=== PATIENT | female | born 1985 | race Caucasian/White ===

== ENCOUNTER → 2021-01-16 12:49 | Outpatient (CLI) | payer OTHER, MEDICAID, SELFPAY ==
--- NOTE | 2021-01-16 | DI.MRI.S_ITS ---
PROCEDURE: MR SHOULDER RT WO CON INDICATIONS: Unspecified disorder of synovium and tendon, right TECHNIQUE: Noncontrast oblique coronal T2 fast spin echo with fat saturation, oblique sagittal T1 spin echo and T2 fast spin echo with fat saturation, axial T1 spin echo and T2 fast spin echo with fat saturation through the shoulder. COMPARISON: [facility], CR, XR SHOULDER 2+ VIEWS RIGHT, 10/24/2020, 14:44. FINDINGS: Image quality: Excellent. Rotator cuff: The supraspinatus, infraspinatus, and subscapularis tendons appear intact throughout. Sagittal images demonstrate no muscle atrophy. Bones and bursae: No bone marrow contusions or fractures. No acromioclavicular joint degeneration. The acromion demonstrates conventional anatomy, without an os acromiale. Small amount of fluid noted in the subacromial/subdeltoid bursa compatible with mild bursitis. Capsule and soft tissues: Labrum is intact. The long head of the biceps tendon demonstrates normal location and morphology. The rotator interval appears normal, without fibrosis. The coracohumeral ligament is normal in thickness. IMPRESSION: 1. Mild subacromial/subdeltoid bursitis. 2. No evidence of internal derangement. Dictated by: Cally Watts MD, PhD on 01/16/2021 at 17:54 Approved by: Cally Watts MD, PhD on 01/17/2021 at 10:09
== END ==
PROVIDERS: PCP Family Medicine Adult Medicine; Referring Provider Physical Medicine & Rehabilitation; Visit Provider Physical Medicine & Rehabilitation
DX: M67.911 Unspecified disorder of synovium and tendon, right shoulder (principal); M75.51 Bursitis of right shoulder
CPT/HCPCS: 73221

== ENCOUNTER 2021-07-11 13:06 | Emergency (ER) | payer OTHER, MEDICAID, SELFPAY ==
[2021-07-11 13:32] VITALS: BP 130/76; PULSE 102; RESP 22; TEMP 36.6; O2SAT 99; BMI 19.0
[2021-07-11 14:05] VITALS: BP 130/74; PULSE 120; O2SAT 100
[2021-07-11 14:20] VITALS: BP 115/70; PULSE 106; O2SAT 96
--- NOTE | 2021-07-11 14:22 | ED_ITS ---
HPI - Back Pain/Injury <CHERIE Ng - Last Filed: 07/11/21 20:49> General Chief Complaint: Back Pain/Injury Stated Complaint: slipped disc, upper back pain, by shoulder Time Seen by Provider: 07/11/21 14:01 Source: patient History of Present Illness HPI Narrative: 35-year-old female presents to the emergency department for chronic left shoulder pain for 1 year but worsening over the last 3 months. Patient was seen by her orthopedic surgeon yesterday, she has completed EMG studies, had an MRI in December of 2020 which at the time showed mild subacromial/subdeltoid bursitis with no evidence of internal derangement. There was a small amount of fluid noted in subacromial subdeltoid bursa compatible with mild bursitis. Patient states she has been having steroid injections every 4 weeks, last injection was 4 weeks ago, she also has been having trigger point injections and monthly chiropractic appointments which has been helpful. She states that she is in a flare right now for an unknown reason, she denies any known trauma recently or any repetitive motions. She states that she has been using lidocaine patches daily, currently has 1 on, took Tylenol this morning, Flexeril this morning, started a steroid pack this morning, she takes pantoprazole daily to help her stuck to her stomach. Her primary care provide Dr. Noble. Patient denies being on any opiate medications at this time, she has not on any pain contract and has been taking ibuprofen and Tylenol at home. Related Data Previous Rx's Medication Instructions Recorded diclofenac sodium 1 % topical gel 4 g TOPICAL QID PRN #100 g 07/11/21 (Voltaren Arthritis Pain) hydrocodone 5 mg-acetaminophen 325 1 tab PO BID PRN #14 tab 07/11/21 mg tablet methocarbamol 500 mg tablet 500 mg PO Q8H PRN #20 tab 07/11/21 Allergies Allergy/AdvReac Type Severity Reaction Status Date / Time No Known Drug Allergies Allergy Verified 07/11/21 13:41 Review of Systems <CHERIE Ng - Last Filed: 07/11/21 20:49> Review of Systems Narrative: General: denies fever, chills, malaise, sweats, fatigue Head/Neck: denies headache, neck pain, dizziness Eyes: denies visual changes, eye pain Cardio: denies chest pain, palpitations, edema Respiratory: denies dyspnea, cough, orthopnea GI: denies abdominal pain, nausea, vomiting, or diarrhea : denies dysuria, hematuria, urinary retention, frequency or incontinence MSK: Denies any muscle weakness, endorses left shoulder pain with radiculopathy to were not elbow, no changes to range of motion although it is a sharp pain. Skin: denies rash, itching, skin lesions or other Neuro: denies numbness, tingling Patient History <CHERIE Ng - Last Filed: 07/11/21 20:49> Social History Smoking Status: Never smoker Smoking Status: Never smoker alcohol intake frequency: holidays/special occasions only Substance Use Type: does not use Exam <CHERIE Ng - Last Filed: 07/11/21 20:49> Narrative Exam Narrative: Independently reviewed vitals signs and nursing notes. General: cooperative, comfortable, in no acute distress, well developed and well groomed Head: atraumatic, symmetrical facial expressions Neck: supple, atraumatic, without lymphadenopathy. Eyes: pupils equal round and reactive, EOMI, conjunctiva normal Nose: nares patent, no rhinorrhea Mouth/Throat: uvula midline, moist mucus membranes Cardiovascular: regular rate and rhythm, no peripheral edema, warm extremities Respiratory: normal effort, able to speak in complete sentences, no audible wheezing, stridor, or rales. No retractions or tachypnea. MSK: moves all extremities, ambulatory w/steady gait, neurovascularly intact, no weakness, left shoulder pain with abduction and flexion. Patient is not currently any sling, has a lidocaine patch on, no erythema, obvious swelling Skin: brisk capillary refill, no rash, no erythema Neuro: normal speech and cognition, A&O x3, normal tone Psych: mental status is grossly normal, congruent mood, normal affect, pleasant and cooperative Initial Vital Signs Initial Vital Signs: Vital Signs Temperature 97.9 F 07/11/21 13:32 Pulse Rate 102 H 07/11/21 13:32 Respiratory Rate 22 07/11/21 13:32 Blood Pressure 130/76 07/11/21 13:32 Pulse Oximetry 99 07/11/21 13:32 Course <CHERIE Ng - Last Filed: 07/11/21 20:49> Orders Ordered: Discontinued Medications Ketorolac Tromethamine (Ketorolac 30 Mg/Ml Vial) 15 mg IM NOW ONE Stop: 07/11/21 14:15 Last Admin: 07/11/21 14:32 Dose: 15 mg Documented by: MARIA GUADALUPE Vital Signs Vital signs: Vital Signs - 8 hr 07/11/21 13:32 07/11/21 14:05 07/11/21 14:20 Temperature 97.9 F Pulse Rate 102 H 120 H 106 H Respiratory Rate 22 Blood Pressure 130/76 130/74 115/70 Pulse Oximetry 99 100 96 MDM - Back Pain/Injury <CHERIE Ng - Last Filed: 07/11/21 20:49> Imaging Data Extremity x-ray #1: Radiologist's Impression: PROCEDURE:? MR SHOULDER RT WO CON ? INDICATIONS:? Unspecified disorder of synovium and tendon, right ? TECHNIQUE:? Noncontrast oblique coronal T2 fast spin echo with fat saturation, oblique sagittal T1 spin echo and T2 fast spin echo with fat saturation, axial T1 spin echo and T2 fast spin echo with fat saturation through the shoulder.? ? COMPARISON:? [facility], CR, XR SHOULDER 2+ VIEWS RIGHT, 10/24/2020, 14:44. ? FINDINGS:? Image quality:? Excellent.? ? Rotator cuff:? The supraspinatus, infraspinatus, and subscapularis tendons appear intact throughout.? Sagittal images demonstrate no muscle atrophy.? ? Bones and bursae:? No bone marrow contusions or fractures.? No acromioclavicular joint degeneration.? The acromion demonstrates conventional anatomy, without an os acromiale.? Small amount of fluid noted in the subacromial/subdeltoid bursa compatible with mild bursitis. ? Capsule and soft tissues:? Labrum is intact.? The long head of the biceps tendon demonstrates normal location and morphology.? The rotator interval appears normal, without fibrosis.? The coracohumeral ligament is normal in thickness.? ? ? IMPRESSION:? ? 1. Mild subacromial/subdeltoid bursitis.? ? 2. No evidence of internal derangement.? Dictated by: Cally Watts MD, PhD on 01/16/2021 at 17:54 ? ? Approved by: Cally Watts MD, PhD on 01/17/2021 at 10:09 ? [facility] Narrative Medical decision making narrative: 35 year old female presents to the emergency department complaining of worsening left shoulder pain which has been chronic in nature since last year patient had a MRI in December 2020 which showed mild subacromial subdeltoid bursitis without evidence of internal derangement. She reportedly saw her orthopedic surgeon yesterday who presume that this is ongoing bursitis/tendinitis pain. She came into the emergency department with lidocaine patches, took Flexeril, started a steroid pack this morning, also took Tylenol bar before she arrived. Patient was given a prescription for muscle relaxers, hydrocodone, and diclofenac topical gel until she can follow up with her orthopedic surgeon about her plan. Her orthopedic surgeon yesterday told her he ordered an MRI for her and they will call her, she has not received this phone call yet. Did not complete any imaging today as patient has already had an MRI of this, she has another MRI pending, there is no recent trauma or acute injury. This is a chronic problem, she understands to follow-up with her primary care provider and orthopedics resolution improvement of her problem. She understands return to the emergency department for any new or worsening problems. Patient was offered a sling, she denied this. Patient is appropriate and amenable to discharge home. Vital signs are stable on repeat examination is unremarkable. Patient has been informed of results. Patient has been given strict return to ER precautions for any new or worsening symptoms. Patient understands to follow up closely with outpatient providers as instructed. Patient understands plan and agrees to discharge home. All questions and concerns answered at this time. Discharge Plan Departure Patient Disposition: Home Clinical Impression: Chronic shoulder pain Qualifiers: Laterality: left Qualified Code(s): M25.512 - Pain in left shoulder Instructions: Shoulder Tendinopathy, DI for Shoulder Pain Activity Restrictions/Additional Instructions: *You have been diagnosed with chronic left shoulder pain as you know with associated nerve pain. I am sorry for your symptoms. Please follow-up with your specialist as scheduled, you are doing everything right this point. Ice can also be very helpful for this type of pain, and the sling if this is worse when your out about during the day. I have sent Robaxin a muscle relaxer to your pharmacy as well as hydrocodone, and diclofenac gel. You may apply this anti-inflammatory gel to the area, and can be pretty helpful as well. Continue using your lidocaine patches, do gentle range of motion and light stretching as tolerated, follow-up with your PCP if physical therapy can be helpful in the meantime. Thank you for trusting us with your care, if you develop any worsening of the symptoms, please come back to the emergency department, especially if you start having any weakness. Feel better soon. *What to do: *Please continue to take your regular medications as directed. [x ] New medication prescriptions sent to your pharmacy: [[facility] ] [ ] New medication written as a paper prescription [ ] No new medications given *Please follow up with your primary care provider in 2-3 days, call for an appointment. Let them know you were seen in the Emergency Department and that we asked that you be seen for follow-up. We will electronically transmit a record of today's note if your PCP is in our system *If you do not have a primary care provider please contact [phone] to establish care with one of the [facility] primary care providers. *Return to Emergency Department if you should have any new, worsening or concerning symptoms, such as [fever greater than 101F, chills, worsening pain, persistent vomiting or other bothersome symptoms] Prescriptions: New methocarbamol 500 mg tablet 500 mg PO Q8H PRN (Reason: shoulder pain) Qty: 20 0RF diclofenac sodium [Voltaren Arthritis Pain] 1 % gel 4 g topical QID PRN (Reason: arthralgia) Qty: 100 0RF Rx Instructions: apply to single knee, ankle, foot; for foot includes sole/toes/top of foot hydrocodone-acetaminophen 5-325 mg tablet 1 tab PO BID PRN (Reason: pain) Qty: 14 0RF Referrals: Star Noble DO [Primary Care Provider] -
[2021-07-11] MEDS: KETOROLAC 30 MG/ML VIAL 15 MG IM (14:32)
== END 2021-07-11 14:44 | disposition home or self-care (01) ==
PROVIDERS: Emergency Provider Nurse Practitioner Critical Care Medicine; PCP Family Medicine Adult Medicine
DX: G89.29 Other chronic pain (principal); M25.512 Pain in left shoulder
CPT/HCPCS: 96372; 99283; J1885

== ENCOUNTER → 2021-08-01 16:32 | Outpatient (CLI) | payer OTHER, MEDICAID, SELFPAY ==
--- NOTE | 2021-08-01 | DI.MRI.S_ITS ---
PROCEDURE: MR CERVICAL SPINE WO CON INDICATIONS: Radiculopathy, cervical region TECHNIQUE: Noncontrast sagittal T1 spin echo and T2 fast spin echo, sagittal STIR, foraminal oblique sagittal T2 fast spin echo, and axial gradient echo or T2 fast spin echo through the cervical spine. COMPARISON: [facility], RF, CERVICAL SPINE INTERLAMINAR, 06/10/2021, 17:55. [facility], RF, CERVICAL SPINE INTERLAMINAR, 11/04/2020, 10:37. Located Within [facility], MR, MR CERVICAL SPINE WITHOUT CONTRAST, 04/22/2020, 19:22. FINDINGS: Image quality: Excellent. Alignment and Curvature: Reversal of the normal cervical lordosis is seen, with the apex at the C5-C6 level. No focal AP alignment abnormality is seen. Bone Marrow: Marrow demonstrates normal overall signal. Spinal Cord: Visualized spinal cord has normal size and signal. No cerebellar tonsillar herniation. Paraspinous Soft Tissues: No paravertebral masses. Prevertebral soft tissues are normal in thickness. C2-C3: Normal appearance. C3-C4: No significant abnormality is seen. C4-C5: The disc height and disk signal are well-preserved. A mild degree of generalized disc osteophyte complex is seen. Mild facet joint hypertrophy is seen. Mild bilateral neural foraminal narrowing is seen. Minimal to mild central canal narrowing is seen. When comparison is made with the prior images, these findings are similar. C5-C6: Mild loss of disc height is seen. Loss of disc signal is seen. Moderate disc osteophyte complex is seen, with a central/left disc osteophyte protrusion, as on series 4, image 26. Mild facet joint hypertrophy is seen. There is mild right-sided and no significant left-sided neural foraminal narrowing. Obek-wi-kwkxoaer central canal narrowing is seen, with associated mild mass effect upon the ventral spinal cord. These imaging findings have progressed compared to the prior study. C6-C7: The disc height and disk signal are well-preserved. A mild degree of generalized disc osteophyte complex is seen. Mild bilateral neural foraminal narrowing can be seen, left worse than right. No significant central canal narrowing is seen. When comparison is made with the prior images, these findings are similar. C7-T1: No significant abnormality is seen. 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 The degenerative changes at C5-C6 have progressed compared to the prior MRI. The degenerative changes otherwise appear similar. Reversal of the normal cervical lordosis is seen. This is commonly observed in patients with muscular spasm. Dictated by: Eddi Wynn M.D. on 08/01/2021 at 17:09 Approved by: Eddi Wynn M.D. on 08/01/2021 at 17:14
== END ==
PROVIDERS: PCP Family Medicine Adult Medicine; Referring Provider Physical Medicine & Rehabilitation; Visit Provider Physical Medicine & Rehabilitation
DX: M47.22 Other spondylosis with radiculopathy, cervical region (principal)
CPT/HCPCS: 72141

== ENCOUNTER → 2022-06-21 09:47 | Outpatient (CLI) | payer OTHER, MEDICAID, SELFPAY ==
--- NOTE | 2022-06-21 09:48 | DI.MRI.S_ITS ---
PROCEDURE: MR SHOULDER LT WO CON INDICATIONS: Strain of muscle, fascia and tendon of other parts TECHNIQUE: Noncontrast oblique coronal T2 fast spin echo with fat saturation, oblique sagittal T1 spin echo and T2 fast spin echo with fat saturation, axial T1 spin echo and T2 fast spin echo with fat saturation through the shoulder. COMPARISON: None. FINDINGS: Image quality: Excellent. Rotator cuff: Mild supraspinatus and infraspinatus tendinosis. The teres minor and subscapularis tendons are intact. There is no significant rotator cuff muscle atrophy. Bones and bursae: No acute trabecular bone injury or fracture. Glenohumeral articular cartilage appears normal. No significant acromioclavicular joint osteoarthrosis. There is mild subacromial/subdeltoid bursal fluid or bursal thickening. A physiologic amount of glenohumeral joint fluid is present. Capsule and soft tissues: No displaced labral tear is seen. The biceps long head tendon is intact. There is normal fat signal in the rotator interval. The glenohumeral ligaments are intact. A few mildly prominent axillary lymph nodes are not significantly enlarged by cross-sectional imaging size criteria. IMPRESSION: 1. Mild supraspinatus and infraspinatus tendinosis. No significant rotator cuff tendon tear is seen. 2. Intact labrum. Biceps long head tendon is intact. No acute trabecular bone injury. 3. Trace subacromial/subdeltoid bursal effusion or mild bursitis. Approved by: Lui Toure M.D. on 06/22/2022 at 8:13
== END ==
PROVIDERS: PCP Family Medicine Adult Medicine; Referring Provider Physical Medicine & Rehabilitation; Visit Provider Physical Medicine & Rehabilitation
DX: S46.212A Strain of muscle, fascia and tendon of other parts of biceps, left arm, initial encounter (principal); X58.XXXA Exposure to other specified factors, initial encounter
CPT/HCPCS: 73221